=== PATIENT | female | born 1950 | race Caucasian/White ===

== ENCOUNTER → 2019-06-20 | Outpatient (CLI) | payer MEDICARE, OTHER | LOC: MC.RAD 13:45 | DX: Z12.31 Encounter for screening mammogram for malignant neoplasm of breast (principal); N63.20 Unspecified lump in the left breast, unspecified quadrant ==

== ENCOUNTER → 2019-07-07 | Outpatient (CLI) | payer MEDICARE, OTHER | LOC: MC.RAD 14:00 | DX: N63.20 Unspecified lump in the left breast, unspecified quadrant (principal) ==

== ENCOUNTER → 2020-01-23 | Outpatient (CLI) | payer MEDICARE, OTHER | LOC: MC.RAD 14:01 | DX: N63.20 Unspecified lump in the left breast, unspecified quadrant (principal); N64.1 Fat necrosis of breast; Z87.828 Personal history of other (healed) physical injury and trauma ==

== ENCOUNTER → 2020-09-04 | Outpatient (CLI) | payer MEDICARE, OTHER | LOC: MC.RAD 13:55 | DX: Z12.31 Encounter for screening mammogram for malignant neoplasm of breast (principal) ==

== ENCOUNTER → 2020-10-21 | Outpatient (CLI) | payer MEDICARE, OTHER ==
[~2020-10-21] VITALS: Ht 165.1 cm; Wt 95.6 kg
[~2020-10-21] MED LIST: CALCIUM 600 MG1 EAC2 PO; CENTRUM SILVER1 CTB PO; IBU400 MG PO; NATURAL FLAX1000 MG PO; PHARMASSURE ZIN50 MG PO; PROBIOTIC FORMU1 CAP PO; TYLENOL 500MG500 MG PO; VISION FORMULA1 EAC1 PO; VITAMIN E 400 U4001 PO; VITAMINC1000TA PO; VITAMIND3 5000 PO; [UNRECOGNIZED DRUG - OTHER] PO; biotin PO
[2020-10-21 11:20] VITALS: BP 164/81; PULSE 78
[2020-10-21 13:05] VITALS: BP 142/81; PULSE 69
== END ==
LOC: COL.RAD 10-16 07:30
DX: S33.140A Subluxation of L4/L5 lumbar vertebra, initial encounter (principal); S33.2XXA Dislocation of sacroiliac and sacrococcygeal joint, initial encounter; M48.061 Spinal stenosis, lumbar region without neurogenic claudication; F40.240 Claustrophobia
CPT/HCPCS: J2250; J2704

== ENCOUNTER → 2020-12-25 | Outpatient (CLI) | payer MEDICARE, OTHER | LOC: MHCPAIN 14:06 | DX: M47.817 Spondylosis without myelopathy or radiculopathy, lumbosacral region (principal); M54.5 Low back pain; M53.3 Sacrococcygeal disorders, not elsewhere classified; G89.29 Other chronic pain | CPT/HCPCS: G0463 ==

== ENCOUNTER → 2021-01-06 | Outpatient (CLI) | payer MEDICARE, OTHER | LOC: MHCPAIN 11:58 | DX: M47.816 Spondylosis without myelopathy or radiculopathy, lumbar region (principal); M54.16 Radiculopathy, lumbar region | CPT/HCPCS: J1100; Q9967 ==

== ENCOUNTER → 2021-01-21 | Outpatient (CLI) | payer MEDICARE, OTHER | LOC: MHCPAIN 13:16 | DX: M47.816 Spondylosis without myelopathy or radiculopathy, lumbar region (principal); M54.5 Low back pain; M53.3 Sacrococcygeal disorders, not elsewhere classified | CPT/HCPCS: G0463 ==

== ENCOUNTER → 2021-01-28 | Outpatient (CLI) | payer MEDICARE, OTHER | LOC: MC.RAD 13:46 | DX: N64.1 Fat necrosis of breast (principal); N63.20 Unspecified lump in the left breast, unspecified quadrant ==

== ENCOUNTER → 2021-09-17 | Outpatient (CLI) | payer MEDICARE, OTHER | LOC: MC.RAD 13:44 | DX: N63.20 Unspecified lump in the left breast, unspecified quadrant (principal) ==

== ENCOUNTER → 2024-01-05 | Outpatient (CLI) | payer MEDICARE, OTHER ==
[~2024-01-05] MED LIST changes: +AMOXICILLIN 8751 TAB PO; +BACTRIM 400 MG-1 TAB PO; +BACTRIM DS 8001 TAB PO; +BIOTIN10000 MC1 PO; +BLACKSEED OIL PO; +DOXYCYCLINE HY100 MG PO; +MOUNJARO2.5 MG/0.5 SQ; +OMEGA-3 1000 MG1 CAP PO; +TYLENOL 8 HR PO; +XANAX 1MG1 MG PO; +[UNRECOGNIZED DRUG - OTHER] PO; -biotin PO
== END ==
LOC: MC.RAD 14:00
DX: Z12.31 Encounter for screening mammogram for malignant neoplasm of breast (principal)